=== PATIENT | male | born 1985 | race Caucasian/White ===

== ENCOUNTER 2019-04-03 14:30 | Emergency (ER) | payer SELFPAY ==
[2019-04-03] MEDS ORDERED: Sodium Chloride 0.9% 1,000 ML IV ONE (14:46)
[2019-04-03 15:02] LABS: % BASOPHILS 0.1 % (0.0-2.0); % EOSINOPHILS 4.7 % (0.0-5.0); % LYMPHOCYTES 28.1 % (20.0-50.0); % MONOCYTES 4.3 % (2.0-10.0); % NEUTROPHILS 62.8 % (40.0-80.0); EOSINOPHILE ABSOLUTE 0.3 Th/cmm (0.1-0.4); HEMOGLOBIN 14.1 gm/dL (12-16); LYMPHOCYTE ABSOLUTE 2.1 Th/cmm (1.5-3.0); MEAN CELL VOLUME 83.6 fl (80-99); MEAN CORPUSCULAR HEMOGLOBIN 28.1 pg (26.0-30.0); MEAN CORPUSCULAR HGB CONC 33.6 pg (28.0-36.0); MONOCYTE ABSOLUTE 0.3 Th/cmm (0.3-1.0); NEUTROPHILE ABSOLUTE 4.6 Th/cmm (1.8-8.0); PLATELET COUNT 318 Th/cmm (150-400); RED BLOOD COUNT 5.03 Mil/cmm (4.30-5.70); RED CELL DISTRIBUTION WIDTH 12.4 % (11.5-20.0); WHITE BLOOD COUNT 7.3 Th/cmm (4.8-10.8)
[2019-04-03 15:23] LABS: AMPHETAMINE URINE POSITIVE (NEGATIVE); BARBITURATES URINE NEGATIVE (NEGATIVE); BENZODIAZEPINES QUAL URINE NEGATIVE (NEGATIVE); CANNABINOID THC POSITIVE (NEGATIVE); COCAINE METABOLITE QUAL URINE NEGATIVE (NEGATIVE); METHADONE URINE NEGATIVE (NEGATIVE); METHAMPHETAMINES QUAL URINE POSITIVE (NEGATIVE); OPIATES (MORPHINE) QUAL. URINE NEGATIVE (NEGATIVE); PHENCYCLIDINE (PCP) URINE NEGATIVE (NEGATIVE); TRICYCLICS (TCA) QUAL. URINE NEGATIVE (NEGATIVE)
[2019-04-03 15:24] LABS: ALB/GLOB RATIO 1.9 (1.0-1.8); ALBUMIN 4.2 gm/dL (4.2-5.5); ALKALINE PHOSPHATASE 72 U/L (34-104); BILIRUBIN,TOTAL 0.3 mg/dL (0.3-1.0); BUN - UREA NITROGEN 5 mg/dL (7-25); CARBON DIOXIDE 25.4 mEq/L (21.0-31.0); CHLORIDE 103 mEq/L (98-107); CREATININE - SERUM 0.5 mg/dL (0.7-1.3); GFR AFRICAN-AMERICAN > 60.0 ml/min (>90); GFR NON AFRICAN-AMERICAN > 60.0 ml/min; GLUCOSE 112 mg/dL (70-105); POTASSIUM SERUM 3.4 mEq/L (3.5-5.1); SGOT 12 U/L (13-39); SGPT/ALT 13 U/L (7-52); SODIUM SERUM 137 mEq/L (136-145); TOTAL PROTEIN,SERUM 6.4 gm/dL (6.0-8.3)
[2019-04-03] MEDS ORDERED: Potassium Chloride 20 mEq ER Tab PO ONE (16:01)
--- NOTE | 2019-04-03 16:43 | ED Physician Chart ---
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 Allergies:: Allergies Allergy/AdvReac Type Severity Reaction Status Date / Time No Known Allergies Allergy Verified 04/03/19 14:40 Vitals:: Vital Signs - 8 hr 04/03/19 04/03/19 04/03/19 14:40 15:46 16:21 Temp 98.3 F 98.1 F 98.1 F HR 94 90 97 RR 18 18 15 BP 114/80 128/80 128/80 O2 Sat % 99 Historian:: Patient, EMS Review:: Nurse's Note Reviewed, Old Chart Reviewed, EMS run form Reviewed ED Review of Systems - Review of Systems General/Constitutional: No fever, No chills, No weight loss, No weakness, No diaphoresis, No edema, No loss of appetite Skin: No skin lesions, No rash, No bruising Head: No headache, No light-headedness Eyes: No loss of vision, No pain, No diplopia ENT: No earache, No nasal drainage, No sore throat, No tinnitus Neck: No neck pain, No swelling, No thyromegaly, No stiffness, No mass noted Cardio Vascular: No chest pain, No palpitations, No PND, No orthopnea, No edema Pulmonary: No SOB, No cough, No sputum, No wheezing GI: No nausea, No vomiting, No diarrhea, No pain, No melena, No hematochezia, No constipation, No hematemesis G/U: No dysuria, No frequency, No hematuria, No nacturia Musculoskeletal: No bone or joint pain, No back pain, No muscle pain Endocrine: No polyuria, No polydipsia Psychiatric: No prior psych history, No depression, No anxiety, No suicidal ideation, No homicidal ideation, No auditory hallucination, No visual hallucination Hematopoietic: No bruising, No lymphadenopathy Allergic/Immuno: No urticaria, No angioedema Neurological: No syncope, No focal symptoms, No weakness, No paresthesia, No headache, No seizure, No dizziness, No confusion, No vertigo ED Past Medical History - Past Medical History Obtainable: Yes Past Medical History: No significant medical hx Family History: None Social History: Smoker, Alcohol, Illicit Drug Use, Single, Homeless Surgical History: None Psychiatricy History: None Medication: Reviewed Family Medical History - Family Member Mother History Unknown: Yes ED Physical Exam - Physical Examination General/Constitutional: Awake, Well-developed, well-nourished, Alert, No distress, GCS 15, Non-toxic appearing, Ambulatory Head: Atraumatic Eyes: Lids, conjuctiva normal, PERRL, EOMI Skin: Nl inspection, No rash, No skin lesions, No ecchymosis, Well hydrated, No lymphadenopathy ENMT: External ears, nose nl, TM canals nl, Nasal exam nl, Lips, teeth, gums nl , Oropharynx nl, Tonsils nl Neck: Nontender, Full ROM w/o pain, No JVD, No nuchal rigidity, No bruit, No mass, No stridor Other Neck comments:: supple; no meningeal signs; no cervical tenderness; no bruits Respiratory: Nl effort/Exclusion, Clear to Auscultation, No Wheeze/Rhonchi/Rales Cardio Vascular: RRR, No murmur, gallop, rubs, NL S1 S2, Carotid/Femoral/Distal pulses equal bilaterally GI: No tenderness/rebounding/guarding, No organomegaly, No hernia, Normal BS's, Nondistended, No mass/bruits, No McBurney tenderness, Rectum exam nl Other GI comments:: no pulsatile masses : No CVA tenderness Extremities: No tenderness or effusion, Full ROM, normal strength in all extremities, No edema, Normal digits & nails Other Extremities comments:: + Right Ankle Swelling and Tenderness upon all PROMs; no loss of ROMs; full, active ROMs; no septic joints; no cellulitis; no wounds; DTRs: 2+ bilaterally; Gait: WNL; no ligament instability; good motor, tendon, and sensory functions; good NV functions Neuro/Psych: Alert/oriented, DTR's symmetric, Normal sensory exam, Normal motor strength, Judgement/insight normal, Mood normal, Normal gait, No focal deficits Other Neuro/Psych comments:: no focal signs Misc: Normal back, No paraspinal tenderness ED Labs/Radiology/EKG Results - Lab Results Results: Laboratory Tests 04/03/19 04/03/19 04/03/19 14:30 14:55 14:55 WBC 7.3 RBC 5.03 Hgb 14.1 Hct 42.0 MCV 83.6 MCH 28.1 MCHC Differential 33.6 RDW 12.4 Plt Count 318 MPV 7.0 Neutrophils % 62.8 Lymphocytes % 28.1 Monocytes % 4.3 Eosinophils % 4.7 Basophils % 0.1 Sodium 137 Potassium 3.4 L Chloride 103 Carbon Dioxide 25.4 Anion Gap 12.0 BUN 5 L Creatinine 0.5 L Est GFR ( Amer) > 60.0 Est GFR (Non-Af Amer) > 60.0 BUN/Creatinine Ratio 10.0 Glucose 112 H Calcium 9.0 Total Bilirubin 0.3 AST 12 L ALT 13 Alkaline Phosphatase 72 Total Protein 6.4 Albumin 4.2 Globulin 2.2 Albumin/Globulin Ratio 1.9 H Urine Opiates Screen NEGATIVE Urine Methadone Screen NEGATIVE Ur Barbiturates Screen NEGATIVE Ur Tricyclics Screen NEGATIVE Ur Phencyclidine Scrn NEGATIVE Amphetamines Screen POSITIVE H U Methamphetamines Scrn POSITIVE H U Benzodiazepines Scrn NEGATIVE U Cocaine Metab Screen NEGATIVE U Cannabinoids Screen POSITIVE H Ethyl Alcohol 25 H Comments:: Reviewed - Radiology Results Comments:: + Comminuted Distal Fibula Bone Fracture and Avulsion Fracture of the Right Ankle; no Dislocations; + STS ED Assessment - Procedures Informed Consent: Procedure/risk/benefits explained by MD: Yes Inspection: No dirt/debris, Bases & margins visual, NO FB Splint Care: Splint applied Post Procedure/Splint Exam: No Active Bleeding, Full Range of Motion, Neuro/ Vascular Exam Comments:: Splint applied to Right Ankle and Right Foot; Crutches; good NV functions ED Septic Shock - . Is Septic Shock (SBP<90, OR Lactate>4 mmol\L) present?: No - <6hrs of presentation: Vital Signs: Vital Signs - 8 hr 04/03/19 04/03/19 04/03/19 14:40 15:46 16:21 Temp 98.3 F 98.1 F 98.1 F HR 94 90 97 RR 18 18 15 BP 114/80 128/80 128/80 O2 Sat % 99 ED Reassessment (Disposition) - Reassessment Reassessment:: pt tolerated po fluids well in ER; pt is asymptomatic upon discharge Reassessment Condition:: Improved - Diagnosis Diagnosis:: Right Ankle Pain; Right Ankle Injury; Hypokalemia; Right Ankle Fractures; Sprains and Strains; Alcohol Abuse; Substance Abuse - Aftercare/Follow up Instructions Aftercare/Follow-Up Instructions:: Counseled pt regarding lab results/diagnosis & need follow up, Refer to Discharge Instructions, Counseled pt & family regarding lab results/diagnosis & need follow up Notes:: X-Rays Instructions - Patient Disposition Discharge/Transfer:: Home Condition at Disposition:: Stable, Improved (RTER prn if existing s/s reoccur and/or get worse and/or any other new s/s occur; ACIs given for all above Dx; Refer to [facility] INDIGO; Refer to Orthopedist/Psychiatrist/Cable Tv Installer INDIGO ; F/U with PMD in one day or prn; RTER prn if concerned)
--- NOTE | 2019-04-04 08:58 | Diagnostic Imaging Report ---
Exam: Right ankle joint HISTORY: Trauma Multiple views of the right demonstrates essentially nondisplaced fracture right intact. Soft tissue swelling right lateral. Small approximately 3 mm fragment avulsion of the right medial malleolus. Soft tissue swelling right medial malleolus. IMPRESSION: Nondisplaced fracture right lateral malleolus Avulsion fracture of the tip of the right medial malleolus. Soft tissue swelling.
== END 2019-04-03 17:24 | disposition home or self-care (01) ==
LOC: ER 14:30
DX: S82.54XA Nondisplaced fracture of medial malleolus of right tibia, initial encounter for closed fracture (principal); F10.10 Alcohol abuse, uncomplicated; F19.10 Other psychoactive substance abuse, uncomplicated; E87.6 Hypokalemia; F17.200 Nicotine dependence, unspecified, uncomplicated; Z59.0 Homelessness; X50.1XXA Overexertion from prolonged static or awkward postures, initial encounter; Y93.89 Activity, other specified; Y92.89 Other specified places as the place of occurrence of the external cause; Y99.8 Other external cause status
CPT/HCPCS: 99283; 96374; 29515; 73610; 36415; 80307; 85025; 80320; 80053; J1885; J7030; Z7502